=== PATIENT | female | born 1960 | race Hispanic/Latino ===

== ENCOUNTER → 2023-05-23 | Outpatient (CLI) | payer BC | END | disposition home or self-care (01) | LOC: RAH 13:21 | PROVIDERS: ATTEND Physician Assistant | DX: Z12.31 Encounter for screening mammogram for malignant neoplasm of breast (principal) | CPT/HCPCS: 77067 ==

== ENCOUNTER → 2023-05-31 | Outpatient (CLI) | payer BC | END | disposition home or self-care (01) | LOC: RAH 09:32 | PROVIDERS: ATTEND Physical Medicine & Rehabilitation | DX: M43.16 Spondylolisthesis, lumbar region (principal); M41.56 Other secondary scoliosis, lumbar region; M47.817 Spondylosis without myelopathy or radiculopathy, lumbosacral region | CPT/HCPCS: 72114 ==

== ENCOUNTER → 2024-08-22 | Outpatient (CLI) | payer BC | END | disposition home or self-care (01) | LOC: RAH 10:03 | PROVIDERS: ATTEND Family Medicine | DX: Z12.31 Encounter for screening mammogram for malignant neoplasm of breast (principal); R92.323 Mammographic fibroglandular density, bilateral breasts | CPT/HCPCS: 77067 ==

== ENCOUNTER → 2025-08-26 | Outpatient (CLI) | payer MEDICARE | END | disposition home or self-care (01) | LOC: RAH 10:21 | PROVIDERS: ATTEND Family Medicine | DX: Z12.31 Encounter for screening mammogram for malignant neoplasm of breast (principal) | CPT/HCPCS: 77067 ==

== ENCOUNTER → 2025-09-24 | Outpatient (CLI) | payer MEDICARE ==
--- NOTE | 2025-09-27 06:45 | HMCIMG ---
BILATERAL BREAST ULTRASOUND: CLINICAL HISTORY: Follow-up for dense breasts Finding: Real-time examination of the both breasts demonstrates heterogeneous echotexture throughout both the. The left breast at 12:00 there is a hypoechoic nodule measuring 0.9 x 0.8 x 0.9 cm. The remaining both breasts has no lesion seen.. There are benign axillary lymph node on the right measures 1.2 x 0.6 x 1.3 cm. On the left it measures 1.1 x 0.7 x 1.3 cm. IMPRESSION: Left breast is a hypoechoic lesion seen which is amenable for ultrasound-guided biopsy. FINAL ASSESSMENT: ACR: BI-RAD -4. Suspicious Finding.
== END | disposition home or self-care (01) ==
LOC: RAH 10:26
PROVIDERS: ATTEND Family Medicine
DX: N63.21 Unspecified lump in the left breast, upper outer quadrant (principal); R92.30 Dense breasts, unspecified; R59.0 Localized enlarged lymph nodes

== ENCOUNTER → 2025-11-04 | Outpatient (CLI) | payer MEDICARE ==
[2025-11-04 09:42] LABS: INR 1.02 (0.85-1.15)
--- NOTE | 2025-11-04 10:00 | NUR ---
U/S GD LT BREAST BX NOT DONE U/S PERFORMED BY Matthieu PAYNE RDMS. PER DR LOYA NO BREAST NODULE NOTED ON U/S IMAGES. NO BREAST BX NEEDED. PT INFORMED. DISCHARGE VIA AMBULATORY. DENIES PAIN. A&O.
--- NOTE | 2025-11-13 10:50 | HMCIMG ---
Left BREAST ULTRASOUND: CLINICAL HISTORY: Left breast nodule at 12:00 Finding: Real-time examination of the [right/left] breast demonstrates mild to moderately heterogeneous echotexture throughout the breast without evidence of focal solid or cystic masses. IMPRESSION: [id number] heterogeneous in left breast with no solid lesion seen. FINAL ASSESSMENT: ACR: BI-RAD - 1. Negative Mammogram.
== END | disposition home or self-care (01) ==
LOC: RAH 08:54
PROVIDERS: ATTEND Family Medicine
DX: N63.25 Unspecified lump in the left breast, overlapping quadrants (principal); Z79.01 Long term (current) use of anticoagulants
CPT/HCPCS: 36415; 76642; 85610; 85730